=== PATIENT | male | born 1990 | race Caucasian/White ===

== ENCOUNTER 2024-11-25 19:26 | Emergency (ER) | payer SELFPAY ==
[2024-11-25] MEDS ORDERED: Boostrix 0.5 ML (Tdap) VIAL (>/=7 yrs of age) ONE (20:33)
[2024-11-25] MEDS ORDERED: Clindamycin 150 MG CAP ONE (20:42)
== END 2024-11-25 20:45 | disposition home or self-care (01) ==
LOC: ERS 19:26
DX: S61.216A Laceration without foreign body of right little finger without damage to nail, initial encounter (principal); L08.9 Local infection of the skin and subcutaneous tissue, unspecified; Z23 Encounter for immunization; W23.0XXA Caught, crushed, jammed, or pinched between moving objects, initial encounter
CPT/HCPCS: 90471; 90715